=== PATIENT | female | born 1950 | race Hispanic/Latino ===

== ENCOUNTER 2020-01-06 14:25 | Emergency (ER) | payer OTHER | END 2020-01-06 15:24 | disposition home or self-care (01) | LOC: EDH 14:25 | DX: K64.9 Unspecified hemorrhoids (principal); I10 Essential (primary) hypertension; E78.5 Hyperlipidemia, unspecified; Z90.49 Acquired absence of other specified parts of digestive tract; Z90.710 Acquired absence of both cervix and uterus ==

== ENCOUNTER 2020-02-16 22:39 | Emergency (ER) | payer OTHER ==
[2020-02-16] MEDS ORDERED: MEPERIDINE-PF 50 MG/ML SYG ONE (23:04)
[2020-02-17] MEDS ORDERED: TRAMADOL HCL 50 MG TABLET ONE (00:03)
== END 2020-02-17 00:24 | disposition home or self-care (01) ==
LOC: EDH 22:39
DX: K64.8 Other hemorrhoids (principal); E78.5 Hyperlipidemia, unspecified; I10 Essential (primary) hypertension; Z90.49 Acquired absence of other specified parts of digestive tract; Z90.710 Acquired absence of both cervix and uterus
CPT/HCPCS: 72192; 96372 ×2; 99284; J2175

== ENCOUNTER → 2020-06-19 | Outpatient (CLI) | payer OTHER | END | disposition home or self-care (01) | LOC: SHCH 16:00 | PROVIDERS: ATTEND Internal Medicine | DX: I51.7 Cardiomegaly (principal); I10 Essential (primary) hypertension; E66.9 Obesity, unspecified; E78.5 Hyperlipidemia, unspecified | CPT/HCPCS: 93306; 93356 ==

== ENCOUNTER → 2023-07-10 | Outpatient (CLI) | payer OTHER ==
[~2023-07-10] MED LIST: LINA290C PO; LISI20TA24 PO; MECL-302 PO; METO-408 PO; OMEP20CA12 PO; POLY17PO4 PO
== END | disposition home or self-care (01) ==
LOC: SHCH 10:01
PROVIDERS: ATTEND Internal Medicine
DX: I08.8 Other rheumatic multiple valve diseases (principal); I11.9 Hypertensive heart disease without heart failure; E78.5 Hyperlipidemia, unspecified; R55 Syncope and collapse
CPT/HCPCS: 93306; 93356

== ENCOUNTER 2024-04-29 22:13 | Emergency (ER) | payer OTHER ==
[~2024-04-29] VITALS: Ht 172.7 cm; Wt 90.7 kg
[~2024-04-29 22:13] MED LIST changes: +HYDR30CR79 RC
--- NOTE | 2024-04-29 22:22 | ERN ---
ED Note History of Present Illness Stated Complaint: ABD PAIN Chief Complaint: Abdominal Pain Time Seen by MD: 22:16 Time Seen by Midlevel: 22:20 Dictation: Ms. Kamaljit Wilson is a 74-year-old female with history of hypertension, GERD, chronic constipation, and vertigo who presented to the emergency department this evening for evaluation of abdominal pain. She reports Allergies: Coded Allergies: No Known Drug Allergies (Unverified Allergy, Unknown, 01/12/22) Home Meds Active Scripts Polyethylene Glycol 3350 (Miralax) 17 Gm Powd.pack, 17 GM PO DAILY, #30 Prov:TAVARES HERNANDEZ NP 01/14/22 Lisinopril (Lisinopril) 20 Mg Tablet, 20 MG PO BID, #60 TAB Prov:TAVARES HERNANDEZ NP 01/14/22 Hydrocortisone (Anusol-Hc) 30 Gm Cream..g., 1 APPL RC TID for 5 Days, #1 TUBE 0 Refills Prov:MARLEEN SIMS MD 12/10/21 Reported Medications Metoprolol Succinate (Metoprolol Succinate) 25 Mg Tab.er.24h, 25 MG PO DAILY, TAB 01/13/22 Linaclotide (Linzess) 290 Mcg Capsule, 290 MCG PO DAILY, CAP 01/12/22 Omeprazole (Omeprazole) 20 Mg Capsule.dr, 20 MG PO DAILY, CAP 01/12/22 Meclizine HCl (Meclizine HCl) 25 Mg Tablet, 25 MG PO QIDP PRN for NAUSEA/VOMITING, TAB 01/12/22 Past Medical History Past Medical History: GERD, Hypertension Surgical History: Hysterectomy, Cholecystectomy PSYCH History: no pertinent psych hx Social History: Negative History: Not Applicable RN Note Reviewed/Agreed w/PFSH: Yes Review of System Dictation REVIEW OF SYSTEMS: CONSTITUTIONAL: Patient denies fevers, chills, sweats and weight changes. EYES: Patient denies any visual symptoms. EARS, NOSE, AND THROAT: No difficulties with hearing. No symptoms of rhinitis or sore throat. CARDIOVASCULAR: Patient denies chest pains, palpitations, orthopnea and paroxysmal nocturnal dyspnea. Reports elevated blood pressure readings; states he has been taking antihypertensive medication as directed RESPIRATORY: No dyspnea on exertion, no wheezing or cough. GI: No nausea, vomiting, diarrhea, constipation, hematochezia or melena. Reports right upper quadrant abdominal pain radiating to the back intermittently for the last few days. Rates pain 7/10 : No urinary hesitancy or dribbling. No nocturia or urinary frequency. No abnormal urethral discharge. MUSCULOSKELETAL: No myalgias or arthralgias. NEUROLOGIC: No chronic headaches, no seizures. Patient denies numbness, tingling or weakness. PSYCHIATRIC: Patient denies problems with mood disturbance. No problems with anxiety. ENDOCRINE: No excessive urination or excessive thirst. DERMATOLOGIC: Patient denies any rashes or skin changes. Initial Vital Sign VS Vital Signs Date Time Temp Pulse Resp B/P (MAP) Pulse Ox O2 Delivery O2 Flow Rate FiO2 04/29/24 22:15 98.8 78 20 211/78 97 Room Air 04/29/24 22:26 0 21 Physical Exam Dictation Vital signs: Reviewed. Afebrile. Constitutional: Uncomfortable Head/Face: Normocephalic, atraumatic. Eyes: Periorbital areas with no swelling, redness, or edema. Lids and lashes are normal. Conjunctival injection is absent. Sclera anicteric. Pupils equal, round, reactive to light. ENT: Pinnas intact and no signs of trauma or erythema. Ear canals clear and no discharge. TMs no erythema. No nasal discharge or bleeding noted. Oropharynx with no exudate, redness, swelling, masses, exudates, or evidence of obstruction. Uvula midline. Mucous membranes moist. Neck: Trachea midline, no masses palpated, and no cervical lymphadenopathy. No swelling. Supple, full range of motion. Chest/Axilla: No tenderness, no crepitus, no paradoxical movement, no retractions. Cardiovascular: Regular rate, regular rhythm, no murmur, no gallops. Symmetric pulses. No peripheral edema. Blood pressure elevated 211/78 Respiratory: Respirations even and unlabored. Lung sounds clear; no wheezes, rales or rhonchi. Room air SpO2 97% Gastrointestinal: Obese. Bowel sounds are normal. No mass or organomegaly . There is tenderness upon palpation of the right upper quadrant as well as a left upper quadrant with radiation to right mid back. No rebound. No rigidity. No voluntary or involuntary guarding. No Gaytan's sign. Neurological: Normal speech, gross motor function intact, gross sensory function intact. No focal weakness/Paresthesia. Musculoskeletal/Extremities: All extremities have full range of motion, no pain or tenderness on palpation. Symmetric pulses. Integumentary: Intact. Skin is normal color, warm and dry. Cap refill less than 2 seconds. Results (Laboratory/Radiology) Laboratory/Radiology Laboratory Tests Test 04/29/24 22:33 White Blood Count 7.5 K/uL (4.8-10.8) Red Blood Count 4.18 MIL/uL (4.00-5.50) Hemoglobin 12.9 g/dL (12.0-16.0) Hematocrit 39.6 % (36-48) Mean Corpuscular Volume 94.7 fL (79-99) Mean Corpuscular Hemoglobin 30.9 pg (27.0-33.0) Mean Corpuscular Hemoglobin Concent 32.6 g/dL (32.0-36.0) Red Cell Distribution Width 13.2 % (11.0-15.5) Platelet Count 170 K/uL (130-400) Mean Platelet Volume 10.8 fL (7.5-10.5) H Immature Granulocyte % (Auto) 0.3 % (0-1) Neutrophils (%) (Auto) 63.3 % (40.0-77.0) Lymphocytes (%) (Auto) 28.3 % (21.0-51.0) Monocytes (%) (Auto) 7.3 % (3.0-13.0) Eosinophils (%) (Auto) 0.5 % (0.0-8.0) Basophils (%) (Auto) 0.3 % (0.0-5.0) Neutrophils # (Auto) 4.8 K/uL (1.8-7.7) Lymphocytes # (Auto) 2.1 K/uL (1.0-4.8) Monocytes # (Auto) 0.6 K/uL (0.1-1.0) Eosinophils # (Auto) 0.04 K/uL (0.00-0.70) Basophils # (Auto) 0.02 K/uL (0.00-0.20) Absolute Immature Granulocyte (auto 0.02 K/uL (0-1) Nucleated Red Blood Cells 0.0 % (0.0-0.19) Sodium Level 132 mmol/L (136-145) L Potassium Level 3.8 mmol/L (3.5-5.1) Chloride Level 98 mmol/L (101-111) L Carbon Dioxide Level 28 mmol/L (21-32) Blood Urea Nitrogen 15 mg/dL (7-18) Creatinine 0.9 mg/dL (0.5-1.0) Glomerular Filtration Rate Calc 68 mL/min (>90) Random Glucose 176 mg/dL (70-105) H Total Calcium 10.4 mg/dL (8.5-10.1) H Troponin I High Sensitivity < 4 ng/L (4-50) L Lipase 53 U/L (16-77) ED Course ED Course Orders Procedure Category Date Status Time Vital Signs Per CPOE 04/29/24 Transmitted Routine 22:19 Saline Lock Iv CPOE 04/29/24 Transmitted 22:19 Cbc With Differential LAB 04/29/24 Complete 22:19 Lipase LAB 04/29/24 Complete 22:19 Urinalysis Profile LAB 04/29/24 Logged 22:19 12 Lead Ekg Tracing- EKG 04/29/24 Complete Technical 22:19 Troponin I High LAB 04/29/24 Complete Sensitivity 22:19 Basic Metabolic Panel LAB 04/29/24 Complete 22:19 Ct Abdomen/Pelvis W/O CT 04/29/24 Resulted Contrast 22:36 Vital Signs Date Time Temp Pulse Resp B/P (MAP) Pulse Ox O2 Delivery O2 Flow Rate FiO2 04/29/24 23:26 98.8 76 20 172/67 100 Room Air* 0 04/29/24 22:26 98.8 88 20 208/90 100 Room Air* 0 21 04/29/24 22:15 98.8 78 20 211/78 97 Room Air Upon arrival to the emergency department noted marked elevation of blood p ressure at 211/78 with pain to the right upper quadrant of abdomen which she rated 7/10. CT scan of the abdomen and pelvis without contrast revealed colon wall thickening involving the transverse colon in the right anterior lower abdomen with adjacent fat stranding suggestive of diverticulitis. There is diverticulosis. There is a superimposed mass lesion possible. No focal absc esses seen. . Pain is decreased. Laboratory findings as noted below. There was no elevation of WBCs. H&H are stable. Na/Cl a 132/96, glucose 178, Ca 10.4, and troponin negative. Lipase is not elevated. Pain is decreased; she was offered pain medication but declined stating she will just take Tylenol.. Repeat blood pressure trending down. Findings were discussed with patient and all questions were answered. She will need to follow up with her PCP for possible referral to GI or repeat CT scan. Medical Decision Making MDM MDM: Differential diagnosis: Diverticulitis, no bowel obstruction, constipation Rationale: Tests considered and ordered secondary to shared decision making include: Lab, CT Previous outside records reviewed: Old ER visits. Risk of complication and/or morbidity or mortality of patient management: None Medications-Per medication reconciliation Need for hospitalization: Patient does not meet criteria for hospitalization. Need for emergency major/minor surgery: No There are no social concerns with this patient. Prescription drug management: Cipro, Flagyl Prescriptions will include symptomatic care Patient's prior external medical records from other ER visits were reviewed by me as indicated. Prior testing and results from previous visits were reviewed. Prior tests were taken into account with medical decision making and resource utilization, independent historian/historians were used to obtain complete medical history. I independently interpreted the test that were performed, results were reviewed by me and considered findings on radiology if ordered. Medical management and examination interpretation discussions were had by me with other qualified healthcare professionals as indicated for the patient's care. DX & DISP Disposition: Discharge Departure Impression: Primary Impression: Abdominal pain Additional Impressions: Diverticulosis, Diverticulitis, Possible lesion/intestinal mass, Elevated random blood glucose level Condition: Stable Scripts Metronidazole (Metronidazole) 500 Mg Tablet 1 TAB PO TID for 10 Days, #30 TAB 0 Refills Prov: MARAL VILLALPANDO NP 04/30/24 Ciprofloxacin (Cipro) 500 Mg/5 Ml Rocio.mc.rec 500 MG PO q 12 hours, #14 TAB 0 Refills Prov: MARAL VILLALPANDO [employer] 04/30/24 Additional Instructions: Rest. For the next 24 hours clear liquid diet (broth, gelatin, T, clear juices) to allow the bowel to rest. After symptoms improved even gradually introduce low fiber foods (white rice, eggs, pasta, and yogurt), once recovering resume a high-fiber diet to prevent further episodes. You will need to take antibiotics for infection Cipro 500 mg every 12 hours as well as Flagyl 500 mg every 8 hours for the next 10 days. Your blood pressure was elevated; you should keep a log to take with you at your next doctor's appointment. Your blood glucose level was elevated to 176 while in the emergency department this will need to be followed up as well at your primary care physician's office. Your CT scan showed an infection (diverticulitis) for which she will be taking an antibiotic. There was noted a possible mass in the colon which may also be from it the infection and will need further follow up. Your primary care physician may need to refer you to a carpenter repair. Referrals: SHINE [facility]NAB[facility]A (PCP) MARAL VILLALPANOD NP Apr 29, 2024 22:22
--- NOTE | 2024-04-29 22:35 | EKG ---
[facility] Test Date: 2024-04-29 Test Time: 22:34:22 Pat Name: NERI ENCARNACION Department: ED Room: Gender: F [employer]: [id number] : 1950 Requested By: MARAL VILLALPANDO Order Number: [id number] Reading MD: Christine Prakash Measurements Intervals Yeoman Rate: 79 P: 56 WY: 163 QRS: 8 QRSD: 86 T: 52 QT: 362 QTc: 415 Interpretive Statements Sinus rhythm Nonspecific T abnormalities, lateral leads Compared to ECG 01/12/2022 18:52:39 T-wave abnormality now present Electronically Signed On 04-30-2024 16:51:04 CDT by Christine Prakash Please click the below link to view image of tracing.
[2024-04-29 23:03] LABS: BASOPHILS # (AUTO) 0.02 K/uL (0.00-0.20); BASOPHILS % (AUTO) 0.3 % (0.0-5.0); EOSINOPHILS # (AUTO) 0.04 K/uL (0.00-0.70); EOSINOPHILS % (AUTO) 0.5 % (0.0-8.0); HEMATOCRIT 39.6 % (36-48); IMMATURE GRANULOCYTE ABSOLUTE 0.02 K/uL (0-1); LYMPHOCYTES # (AUTO) 2.1 K/uL (1.0-4.8); LYMPHOCYTES % (AUTO) 28.3 % (21.0-51.0); MEAN CORPUSCULAR HEMOGLOBIN 30.9 pg (27.0-33.0); MEAN CORPUSCULAR HGB CONC 32.6 g/dL (32.0-36.0); MEAN CORPUSCULAR VOLUME 94.7 fL (79-99); MONOCYTES # (AUTO) 0.6 K/uL (0.1-1.0); MONOCYTES % (AUTO) 7.3 % (3.0-13.0); NEUTROPHILS # (AUTO) 4.8 K/uL (1.8-7.7); NEUTROPHILS % (AUTO) 63.3 % (40.0-77.0); PLATELET COUNT (AUTO) 170 K/uL (130-400); RED BLOOD CELL COUNT(AUTO) 4.18 MIL/uL (4.00-5.50); RED CELL DISTRIBUTION WIDTH 13.2 % (11.0-15.5); WHITE BLOOD COUNT (AUTO) 7.5 K/uL (4.8-10.8)
[2024-04-29 23:26] VITALS: BP 172/67; PULSE 76; RESP 20; TEMP 98.7; O2SAT 100
--- NOTE | 2024-04-29 23:28 | HMCIMG ---
CT ABDOMEN/PELVIS W/O CONTRAST HISTORY: Right upper abdominal pain COMPARISON: 01/12/2022 TECHNIQUE: Multiple sequential axial images of the abdomen and pelvis were obtained from the dome of the diaphragm through symphysis pubis. Patient was not given contrast through intravenous route. Oral contrast was not given. FINDINGS: No pleural effusion is seen bilaterally. There is no evidence of parenchymal disease or pulmonary nodule of the visualized lower lungs. Degenerative changes of the thoracolumbar spine are present. The heart is not enlarged. Liver measures 18 cm. Postcholecystectomy changes are seen. Fatty changes of the liver are noted. There is colon wall thickening noted involving the transverse colon in the right anterior lower abdomen with adjacent fat stranding may be related to diverticulitis with superimposed mass lesion not excluded. No focal abscess is seen. There is diverticulosis. The liver, spleen, adrenal glands and pancreas are unremarkable. There is no evidence of hydronephrosis bilaterally. No evidence of renal stone is seen. Fecal material is seen in the colon. There are normal size retroperitoneal and mesenteric lymph nodes. No ascites is seen. Atherosclerotic changes are present. Pelvic sidewalls are symmetric bilaterally. Bladder is well distended without wall thickening. IMPRESSION: 1. There is colon wall thickening noted involving the transverse colon in the right anterior lower abdomen with adjacent fat stranding may be related to diverticulitis with superimposed mass lesion not excluded. No focal abscess is seen. There is diverticulosis. CT was performed with one or more following dose reduction techniques: automated exposure control, adjustment of the mA and kv according to patient's size, or use of a iterative reconstruction technique.
[2024-04-29 23:29] LABS: CREATININE 0.9 mg/dL (0.5-1.0); POTASSIUM 3.8 mmol/L (3.5-5.1)
[2024-04-30] MEDS ORDERED: 0.9% NACL 500ML IV.SOLN 500 ML IV ONE (01:00)
[2024-04-30] MEDS ORDERED: ondanSETRON 4MG INJ IVP ONE (01:00)
[2024-04-30] MEDS ORDERED: hydroMORPHone 0.5 MG SYG (0.5MG/0.5ML) IVP ONE (01:00)
[2024-04-30] MEDS ORDERED: METR-172 PO (01:05)
[2024-04-30] MEDS ORDERED: CIPR500S4 PO (01:05)
== END 2024-04-30 01:11 | disposition home or self-care (01) ==
LOC: EDH 22:13
DX: K57.32 Diverticulitis of large intestine without perforation or abscess without bleeding (principal); I10 Essential (primary) hypertension; Z79.899 Other long term (current) drug therapy; Z90.49 Acquired absence of other specified parts of digestive tract; Z90.710 Acquired absence of both cervix and uterus
CPT/HCPCS: 36415; 74176; 80048; 83690; 84484; 85025; 93005; 99284; J1171; J2405; J7040

== ENCOUNTER → 2024-06-20 | Outpatient (CLI) | payer OTHER ==
[~2024-06-20] MED LIST changes: +CIPR500S4 PO; +METR-172 PO
--- NOTE | 2024-06-21 09:43 | HMCIMG ---
Exam Type: FOOT COMP 3+VWS LT Clinical Information: LEFT FOOT PAIN Comparison: None Findings: The examination is unremarkable except for calcaneal spurs. No fractures or dislocations are seen. No radiopaque foreign bodies are noted. Soft tissues are preserved. IMPRESSION: Calcaneal spurs.
== END | disposition home or self-care (01) ==
LOC: RAH 16:56
PROVIDERS: ATTEND Family Medicine
DX: M77.32 Calcaneal spur, left foot (principal); M79.672 Pain in left foot
CPT/HCPCS: 73630